=== PATIENT | female | born 1960 | race Caucasian/White ===

== ENCOUNTER 2022-12-23 11:38 | Emergency (ER) | payer OTHER ==
[2022-12-23 12:18] LABS: #Basophils 0.1 thou/uL (0.0-0.2); #Eosinphils 0.2 thou/uL (0.0-0.7); #Monocytes 0.7 thou/uL (0.11-0.59); #Neutrophils 4.6 thou/uL (1.40-6.50); %Basophils 0.8 % (0.0-1.0); %Eosinophils 1.9 % (0.0-10.0); %Lymphocytes 34.2 % (21.0-51.0); %Monocytes 8.3 % (0.0-10.0); %Neutrophils 54.1 % (42.0-75.0); Hematocrit 42.8 % (36.0-47.0); Hemoglobin 13.8 g/dL (12.0-16.0); Mean Corpuscular HGB CONC 32.2 g/dL (32.0-36.0); Mean Corpuscular Hemoglobin 30.6 pg (27.0-31.0); Mean Corpuscular Volume 94.9 fl (78.0-98.0); Mean Platelet Volume 11.7 fL (7.4-10.4); Platelet Count 202 10x3/uL (130-400); RBC Distribution Width 16.1 % (11.5-14.5); Red Blood Cell (RBC) Count 4.51 mill/uL (4.20-5.40); White Blood Cell (WBC) Count 8.5 10x3/uL (4.8-10.8)
[2022-12-23 12:37] LABS: Bacteria/HPF None Seen HPF (None Seen); Bilirubin Negative (Negative); Blood, Urine 1+ (Negative); CAUTI Indications for Culture < 2yrs of age; Clarity Clear (Clear); Glucose, Urine (Dipstick) Normal (Negative); Ketone, Urine Negative (Negative); Leukocyte 25 Leu/uL (Negative); Nitrite Negative (Negative); Protein, Urine (Dipstick) 10 mg/dL (Neg-Trace); Specific Gravity, Urine 1.011 (1.002-1.036); Squamous Epithelial 0-3 HPF (0-3); Urobilinogen Normal mg/dL (Less than 2); WBC/HPF 0-3 HPF (0-3)
[2022-12-23 12:39] LABS: Urine Culture Reflex Yes Yes
[2022-12-23] MEDS ORDERED: HYDROcodone/Acetaminophen 5/325 mg Tablet ONE (12:40)
[2022-12-23 12:41] LABS: ALT (SGPT) 21 U/L (8-55); AST (SGOT) 24 U/L (5-34); Albumin 4.8 g/dL (3.4-4.8); Alkaline Phosphatase 105 U/L (40-110); Anion Gap 15 mmol/L (10-20); BUN (Urea Nitrogen) 9 mg/dL (9.8-20.1); Bilirubin, Total Less than 0.2 mg/dL (0.2-1.2); Calc. Creatinine Clearance 0 mL/min (70-130); Calcium 9.6 mg/dL (7.8-10.44); Carbon Dioxide 23 mmol/L (23-31); Chloride 108 mmol/L (98-107); Estimated GFR 98; Globulin 2.9 g/dL (2.4-3.5); Glucose 90 mg/dL (80-115); Lipase 63 U/L (8-78); Potassium 3.3 mmol/L (3.5-5.1); Protein, Total 7.7 g/dL (5.8-8.1); Sodium 143 mmol/L (136-145)
[2022-12-23 13:42] LABS: Troponin I Less than 0.010 ng/mL (< 0.028)
== END 2022-12-23 16:10 | disposition home or self-care (01) ==
LOC: ERS 11:38
DX: R53.1 Weakness (principal); I10 Essential (primary) hypertension; F17.210 Nicotine dependence, cigarettes, uncomplicated
CPT/HCPCS: 36415; 70450; 71045; 80053; 81001; 83605; 83690; 84484; 85025; 87086; 93005

== ENCOUNTER 2023-01-21 10:52 | Outpatient (CLI) | payer OTHER | END 2023-01-21 10:53 | disposition home or self-care (01) | LOC: MRI 10:52 | PROVIDERS: ATTEND Family Medicine | DX: M47.26 Other spondylosis with radiculopathy, lumbar region (principal); M96.1 Postlaminectomy syndrome, not elsewhere classified; Z98.1 Arthrodesis status | CPT/HCPCS: 72148 ==

== ENCOUNTER 2023-03-04 07:24 | Emergency (ER) | payer OTHER ==
[2023-03-04 08:01] LABS: #Eosinphils 0.1 thou/uL (0.0-0.7); #Monocytes 0.6 thou/uL (0.11-0.59); #Neutrophils 3.4 thou/uL (1.40-6.50); %Basophils 0.3 % (0.0-1.0); %Eosinophils 1.8 % (0.0-10.0); %Lymphocytes 46.3 % (21.0-51.0); %Monocytes 8.1 % (0.0-10.0); %Neutrophils 43.1 % (42.0-75.0); Hematocrit 43.7 % (36.0-47.0); Hemoglobin 14.3 g/dL (12.0-16.0); Mean Corpuscular HGB CONC 32.7 g/dL (32.0-36.0); Mean Corpuscular Volume 94.6 fl (78.0-98.0); Mean Platelet Volume 12.3 fL (7.4-10.4); Platelet Count 192 10x3/uL (130-400); RBC Distribution Width 14.7 % (11.5-14.5); Red Blood Cell (RBC) Count 4.62 mill/uL (4.20-5.40)
[2023-03-04] MEDS ORDERED: Aspirin Chewable 81 MG TAB ONE (08:14)
[2023-03-04 08:26] LABS: ALT (SGPT) 20 U/L (8-55); AST (SGOT) 21 U/L (5-34); Albumin 4.2 g/dL (3.4-4.8); Alkaline Phosphatase 96 U/L (40-110); Anion Gap 13 mmol/L (10-20); BUN (Urea Nitrogen) 15 mg/dL (9.8-20.1); Bilirubin, Total 0.3 mg/dL (0.2-1.2); Calc. Creatinine Clearance 0 mL/min (70-130); Carbon Dioxide 27 mmol/L (23-31); Chloride 105 mmol/L (98-107); Estimated GFR 79; Globulin 3.2 g/dL (2.4-3.5); Glucose 84 mg/dL (80-115); Potassium 3.3 mmol/L (3.5-5.1); Protein, Total 7.4 g/dL (5.8-8.1); Sodium 142 mmol/L (136-145)
[2023-03-04 08:31] LABS: Troponin I Less than 0.010 ng/mL (< 0.028)
[2023-03-04] MEDS ORDERED: Ketorolac Tromethamine 30 MG (1 mL) VIAL ONE (10:39)
[2023-03-04] MEDS ORDERED: Potassium Chloride 20 MEQ TAB ONE (11:09)
[2023-03-04 11:36] LABS: Troponin I Less than 0.010 ng/mL (< 0.028)
== END 2023-03-04 11:54 | disposition home or self-care (01) ==
LOC: ERS 07:24
DX: R07.9 Chest pain, unspecified (principal); E87.6 Hypokalemia; I10 Essential (primary) hypertension; F17.290 Nicotine dependence, other tobacco product, uncomplicated; Z79.899 Other long term (current) drug therapy
CPT/HCPCS: 36415; 71045; 80053; 84484; 85025; 93005; 96374; J1885

== ENCOUNTER 2023-03-24 16:18 | Observation (INO) | payer OTHER ==
[2023-03-24 16:57] LABS: #Eosinphils 0.2 thou/uL (0.0-0.7); #Monocytes 0.5 thou/uL (0.11-0.59); #Neutrophils 2.9 thou/uL (1.40-6.50); %Basophils 0.6 % (0.0-1.0); %Eosinophils 3.8 % (0.0-10.0); %Lymphocytes 40.8 % (21.0-51.0); %Monocytes 8.3 % (0.0-10.0); %Neutrophils 45.7 % (42.0-75.0); Hematocrit 35.2 % (36.0-47.0); Hemoglobin 11.4 g/dL (12.0-16.0); Mean Corpuscular HGB CONC 32.4 g/dL (32.0-36.0); Mean Corpuscular Hemoglobin 31.5 pg (27.0-31.0); Mean Corpuscular Volume 97.2 fl (78.0-98.0); Platelet Count 317 10x3/uL (130-400); RBC Distribution Width 14.9 % (11.5-14.5); Red Blood Cell (RBC) Count 3.62 mill/uL (4.20-5.40); White Blood Cell (WBC) Count 6.4 10x3/uL (4.8-10.8)
[2023-03-24 17:27] LABS: ALT (SGPT) 16 U/L (8-55); AST (SGOT) 17 U/L (5-34); Albumin 3.6 g/dL (3.4-4.8); Alkaline Phosphatase 79 U/L (40-110); Anion Gap 17 mmol/L (10-20); BUN (Urea Nitrogen) 12 mg/dL (9.8-20.1); Bilirubin, Total 0.2 mg/dL (0.2-1.2); Calc. Creatinine Clearance 0 mL/min (70-130); Calcium 8.9 mg/dL (7.8-10.44); Carbon Dioxide 23 mmol/L (23-31); Chloride 105 mmol/L (98-107); Estimated GFR 89; Globulin 2.6 g/dL (2.4-3.5); Glucose 126 mg/dL (80-115); Potassium 3.8 mmol/L (3.5-5.1); Protein, Total 6.2 g/dL (5.8-8.1); Sodium 141 mmol/L (136-145)
[2023-03-24 17:41] LABS: Troponin I Less than 0.010 ng/mL (< 0.028)
[2023-03-24] MEDS ORDERED: Acetaminophen 500 MG TAB ONE (18:50)
[2023-03-24] MEDS ORDERED: Nitroglycerin 0.4 MG TAB (25 Tab Bottle) SL PRN (19:07)
[2023-03-24] MEDS ORDERED: Senokot S 8.6-50 MG TAB PO PRN (19:09)
[2023-03-24] MEDS ORDERED: Calcium Carbonate 500 MG ChewTAB PO PRN (19:09)
[2023-03-24] MEDS ORDERED: Ondansetron ODT 4 MG TAB PO PRN (19:09)
[2023-03-24] MEDS ORDERED: Acetaminophen 325 MG TAB PO PRN (19:09)
[2023-03-24] MEDS ORDERED: Atorvastatin Calcium 40 MG TAB PO SCH (21:15)
[2023-03-24] MEDS ORDERED: Lidocaine 4% Patch TD SCH (21:30)
[2023-03-24] MEDS: Famotidine 20 MG TAB PO SCH (22:08)
[2023-03-24 22:26] LABS: Troponin I 0.018 ng/mL (< 0.028)
[2023-03-24 23:42] VITALS: BMI 16.6
[2023-03-25] MEDS ORDERED: Baclofen 10 MG TAB PO PRN (00:36)
[2023-03-25 00:38] LABS: Troponin I Less than 0.010 ng/mL (< 0.028)
[2023-03-25] MEDS ORDERED: Baclofen 10 MG TAB PO SCH (00:45)
[2023-03-25] MEDS ORDERED: Ketorolac Tromethamine 30 MG (1 mL) VIAL IVP SCH ×2 (01:00→04:00)
[2023-03-25] MEDS ORDERED: HYDROcodone/Acetaminophen 5/325 mg Tablet PO PRN (01:01)
[2023-03-25 05:48] LABS: #Basophils 0.1 thou/uL (0.0-0.2); #Eosinphils 0.3 thou/uL (0.0-0.7); #Monocytes 0.6 thou/uL (0.11-0.59); #Neutrophils 3.2 thou/uL (1.40-6.50); %Basophils 0.9 % (0.0-1.0); %Eosinophils 3.8 % (0.0-10.0); %Lymphocytes 37.2 % (21.0-51.0); %Monocytes 8.6 % (0.0-10.0); %Neutrophils 48.6 % (42.0-75.0); Hematocrit 33.3 % (36.0-47.0); Hemoglobin 10.6 g/dL (12.0-16.0); Mean Corpuscular HGB CONC 31.8 g/dL (32.0-36.0); Mean Corpuscular Hemoglobin 30.5 pg (27.0-31.0); Mean Platelet Volume 10.8 fL (7.4-10.4); Platelet Count 283 10x3/uL (130-400); Red Blood Cell (RBC) Count 3.47 mill/uL (4.20-5.40); White Blood Cell (WBC) Count 6.6 10x3/uL (4.8-10.8)
[2023-03-25 06:17] LABS: Anion Gap 10 mmol/L (10-20); BUN (Urea Nitrogen) 17 mg/dL (9.8-20.1); Calc. Creatinine Clearance 54 mL/min (70-130); Calcium 8.9 mg/dL (7.8-10.44); Carbon Dioxide 22 mmol/L (23-31); Cardiac Risk 5.1 (Less than 4.5); Chloride 109 mmol/L (98-107); Cholesterol 138 mg/dl (< 200 Desired); Estimated GFR 97; Glucose 100 mg/dL (80-115); HDL Cholesterol 27 mg/dL (>60 Neg Risk); LDL Cholesterol, Calculated 71 mg/dL; Potassium 4.1 mmol/L (3.5-5.1); Sodium 137 mmol/L (136-145); Triglycerides 198 mg/dL (Less than 150)
[2023-03-25] MEDS ORDERED: Carvedilol 6.25 MG TAB PO SCH (08:00)
[2023-03-25 08:08] VITALS: TEMP 97.6
[2023-03-25] MEDS ORDERED: Lisinopril 20 MG TAB PO SCH (09:00)
[2023-03-25] MEDS ORDERED: Transdermal Patch Removal TOP SCH (09:30)
[2023-03-25] MEDS ORDERED: Regadenoson 0.4 MG/5 ML SYRINGE ONE (10:13)
[2023-03-25] MEDS: Pregabalin 50 MG CAP PO SCH ×2 (15:06→15:39)
[2023-03-25] MEDS: Famotidine 20 MG TAB PO SCH (15:37)
[2023-03-25 15:41] VITALS: BP 89/54
[2023-03-25] MEDS ORDERED: Atorvastatin Calcium 40 MG TAB PO SCH (21:00)
[2023-03-26] MEDS ORDERED: Amlodipine 10 MG TAB PO SCH (09:00)
[2023-03-26] MEDS ORDERED: Nicotine 21 MG PATCH TD SCH (09:00)
[2023-03-26] MEDS ORDERED: carBAMazepine XR 200 mg ER.Tablet PO SCH (09:00)
[2023-03-26] MEDS ORDERED: Aspirin 81 mg Enteric Coated Tablet PO SCH (09:00)
[2023-03-27] MEDS ORDERED: FLU VACC QS2023-24(6MOS UP)/PF 60 MCG/0.5 ML SYRINGE IM ONE (09:00)
[2023-03-28] MEDS ORDERED: FLU VACC QS2023-24(6MOS UP)/PF 60 MCG/0.5 ML SYRINGE IM ONE (09:00)
== END 2023-03-25 16:05 | disposition home or self-care (01) ==
LOC: ERS 16:18 → 2SW 19:30
PROVIDERS: ADMIT Student in an Organized Health Care Education/Training Program; ATTEND Family Medicine
DX: I25.10 Atherosclerotic heart disease of native coronary artery without angina pectoris (principal); E78.5 Hyperlipidemia, unspecified; I10 Essential (primary) hypertension; Z87.891 Personal history of nicotine dependence; Z90.710 Acquired absence of both cervix and uterus; Z98.890 Other specified postprocedural states
CPT/HCPCS: 36415; 71045; 78452; 80048; 80053; 80061; 84484; 85025; 93005; 93017; 96374; A9502; G0378; J1885; J2785

== ENCOUNTER 2023-04-03 09:53 | Emergency (ER) | payer OTHER ==
[2023-04-03 11:35] LABS: #Basophils 0.1 thou/uL (0.0-0.2); #Eosinphils 0.2 thou/uL (0.0-0.7); #Monocytes 0.9 thou/uL (0.11-0.59); #Neutrophils 4.6 thou/uL (1.40-6.50); %Basophils 0.9 % (0.0-1.0); %Eosinophils 2.3 % (0.0-10.0); %Lymphocytes 27.3 % (21.0-51.0); %Monocytes 11.3 % (0.0-10.0); %Neutrophils 57.4 % (42.0-75.0); Hematocrit 33.7 % (36.0-47.0); Mean Corpuscular HGB CONC 32.6 g/dL (32.0-36.0); Mean Corpuscular Hemoglobin 31.4 pg (27.0-31.0); Mean Corpuscular Volume 96.3 fl (78.0-98.0); Mean Platelet Volume 11.1 fL (7.4-10.4); Platelet Count 228 10x3/uL (130-400); RBC Distribution Width 15.3 % (11.5-14.5)
[2023-04-03 11:55] LABS: Acetaminophen Less than 10 mcg/mL (10.0-30.0); Alcohol Less than 10.0 mg/dL (Less than 10); Salicylate Less than 8.0 mg/dL (15.0-30.0)
[2023-04-03 11:56] LABS: ALT (SGPT) 18 U/L (8-55); AST (SGOT) 18 U/L (5-34); Albumin 3.7 g/dL (3.4-4.8); Alkaline Phosphatase 98 U/L (40-110); Anion Gap 10 mmol/L (10-20); BUN (Urea Nitrogen) 13 mg/dL (9.8-20.1); Bilirubin, Total 0.2 mg/dL (0.2-1.2); Calc. Creatinine Clearance 0 mL/min (70-130); Calcium 9.3 mg/dL (7.8-10.44); Carbon Dioxide 26 mmol/L (23-31); Chloride 108 mmol/L (98-107); Estimated GFR 99; Globulin 2.7 g/dL (2.4-3.5); Glucose 99 mg/dL (80-115); Potassium 4.4 mmol/L (3.5-5.1); Protein, Total 6.4 g/dL (5.8-8.1); Sodium 140 mmol/L (136-145)
[2023-04-03 12:32] LABS: Amphetamine Not Detected (NotDetected); Barbiturates Screen Not Detected (NotDetected); Benzodiazepine Screen Not Detected (NotDetected); Cocaine Metabolite Screen Not Detected (NotDetected); Methadone Not Detected (NotDetected); Methamphetamine Not Detected (NotDetected); Opiate Screen Detected (NotDetected); Oxycodone Screen Not Detected (NotDetected); Phencyclidine (PCP) Not Detected (NotDetected); THC/Cannabinoid Screen Not Detected (NotDetected); Tricyclic Screen Not Detected (NotDetected)
[2023-04-03 12:34] LABS: Bacteria/HPF None Seen HPF (None Seen); Bilirubin Negative (Negative); Blood, Urine Negative (Negative); CAUTI Indications for Culture Alt mental st,lethar; Clarity Clear (Clear); Glucose, Urine (Dipstick) Normal (Negative); Ketone, Urine Negative (Negative); Leukocyte Negative Leu/uL (Negative); Nitrite Negative (Negative); Protein, Urine (Dipstick) Negative (Neg-Trace); RBC/HPF 0-3 HPF (0-3); Specific Gravity, Urine 1.008 (1.002-1.036); Squamous Epithelial 0-3 HPF (0-3); Urobilinogen Normal mg/dL (Less than 2); WBC/HPF 0-3 HPF (0-3); pH, Urine 5.5 (5.0-9.0)
[2023-04-03 12:35] LABS: Urine Culture Reflex No No
== END 2023-04-03 12:40 | disposition home or self-care (01) ==
LOC: ERS 09:53
DX: S93.601A Unspecified sprain of right foot, initial encounter (principal); S93.401A Sprain of unspecified ligament of right ankle, initial encounter; I10 Essential (primary) hypertension; F17.210 Nicotine dependence, cigarettes, uncomplicated; I25.2 Old myocardial infarction; W18.39XA Other fall on same level, initial encounter; Y93.89 Activity, other specified
CPT/HCPCS: 36415; 80053; 80306; 80307; 81001; 85025; 93005

== ENCOUNTER 2023-04-29 08:35 | Outpatient (CLI) | payer OTHER | END 2023-04-29 08:36 | disposition home or self-care (01) | LOC: CT 08:35 | PROVIDERS: ATTEND Internal Medicine | DX: I25.10 Atherosclerotic heart disease of native coronary artery without angina pectoris (principal); I70.0 Atherosclerosis of aorta; I70.1 Atherosclerosis of renal artery | CPT/HCPCS: 74174 ==

== ENCOUNTER 2023-08-31 13:41 | Outpatient (CLI) | payer OTHER | END 2023-08-31 13:42 | disposition home or self-care (01) | LOC: MRI 13:41 | PROVIDERS: ATTEND Neurological Surgery | DX: M47.816 Spondylosis without myelopathy or radiculopathy, lumbar region (principal); Z98.1 Arthrodesis status; M51.27 Other intervertebral disc displacement, lumbosacral region | CPT/HCPCS: 72131; 72148 ==

== ENCOUNTER 2023-10-21 12:32 | Outpatient (CLI) | payer OTHER | END 2023-10-21 12:33 | disposition home or self-care (01) | LOC: ULT 12:32 | PROVIDERS: ATTEND Psychiatry & Neurology Neurology | DX: R56.9 Unspecified convulsions (principal) | CPT/HCPCS: 93880 ==

== ENCOUNTER 2023-10-22 12:23 | Outpatient (CLI) | payer OTHER | END 2023-10-22 12:24 | disposition home or self-care (01) | LOC: EEG 12:23 | PROVIDERS: ATTEND Psychiatry & Neurology Neurology | DX: R56.9 Unspecified convulsions (principal); G93.40 Encephalopathy, unspecified | CPT/HCPCS: 93306; 95816 ==

== ENCOUNTER 2023-12-02 09:26 | Outpatient (CLI) | payer OTHER ==
[2023-12-02] MEDS ORDERED: Magnevist 469MG/ML 20 ML VIAL ONE (09:31)
== END 2023-12-02 09:27 | disposition home or self-care (01) ==
LOC: MRI 09:26
PROVIDERS: ATTEND Psychiatry & Neurology Neurology
DX: R56.9 Unspecified convulsions (principal); J34.89 Other specified disorders of nose and nasal sinuses; R90.89 Other abnormal findings on diagnostic imaging of central nervous system; Z98.1 Arthrodesis status
CPT/HCPCS: 70553; 76376

== ENCOUNTER 2023-12-15 13:29 | Outpatient (CLI) | payer OTHER | END 2023-12-15 13:30 | disposition home or self-care (01) | LOC: BICMAMMO 13:29 | PROVIDERS: ATTEND Neurological Surgery | DX: M85.9 Disorder of bone density and structure, unspecified (principal); M81.0 Age-related osteoporosis without current pathological fracture | CPT/HCPCS: 77080 ==

== ENCOUNTER 2024-04-04 17:57 | Inpatient (IN) | payer OTHER, SELFPAY ==
[2024-04-04] MEDS ORDERED: levETIRAcetam 500 MG (5 mL) VIAL ONE (18:52)
[2024-04-04] MEDS ORDERED: Boostrix 0.5 ML (Tdap) VIAL (>/=7 yrs of age) ONE (20:16)
[2024-04-04 21:17] LABS: #Basophils 0.06 10x3/uL (0.0-0.2); %Basophils 0.4 % (0.0-1.0); %Eosinophils 0.2 % (0.0-10.0); %Lymphocytes 6.3 % (21.0-51.0); %Monocytes 4.8 % (0.0-10.0); %Neutrophils 87.4 % (42.0-75.0); Hematocrit 34.5 % (36.0-47.0); Hemoglobin 11.1 g/dL (12.0-16.0); Mean Corpuscular HGB CONC 32.2 g/dL (32.0-36.0); Mean Corpuscular Hemoglobin 29.4 pg (27.0-31.0); Mean Corpuscular Volume 91.5 fL (78.0-98.0); Mean Platelet Volume 10.9 fL (7.4-10.4); Platelet Count 178 10x3/uL (130-400); RBC Distribution Width 15.6 % (11.5-14.5); Red Blood Cell (RBC) Count 3.77 mill/uL (4.20-5.40)
[2024-04-04 21:36] LABS: Acetaminophen Less than 10 mcg/mL (Less than 10); Alcohol Less than 10.0 mg/dL (Less than 10); Salicylate Less than 8.0 mg/dL (Less than 8.0)
[2024-04-04 21:38] LABS: ALT (SGPT) 24 U/L (Less than 34); AST (SGOT) 27 U/L (11-34); Albumin 3.2 g/dL (3.1-4.5); Alkaline Phosphatase 92 U/L (40-110); Anion Gap 17 mmol/L (10-20); BUN (Urea Nitrogen) 11 mg/dL (9.8-20.1); Bilirubin, Total 0.3 mg/dL (0.3-1.2); Calc. Creatinine Clearance 0 mL/min (70-130); Calcium 8.4 mg/dL (7.8-10.44); Carbamazepine-Tegretol 11.8 ug/mL (4.0-12.0); Carbon Dioxide 18 mmol/L (23-31); Chloride 111 mmol/L (98-107); Estimated GFR 104; Globulin 3.1 g/dL (2.4-3.5); Glucose 101 mg/dL (80-115); Potassium 3.6 mmol/L (3.5-5.1); Protein, Total 6.3 g/dL (5.8-8.1); Sodium 142 mmol/L (136-145)
[2024-04-04] MEDS ORDERED: fentaNYL 50 mcg/mL 1 mL Vial ONE (22:28)
[2024-04-04 23:42] LABS: Amphetamine Not Detected (NotDetected); Barbiturates Screen Not Detected (NotDetected); Benzodiazepine Screen Not Detected (NotDetected); Cocaine Metabolite Screen Not Detected (NotDetected); Methadone Not Detected (NotDetected); Methamphetamine Not Detected (NotDetected); Opiate Screen Detected (NotDetected); Oxycodone Screen Not Detected (NotDetected); Phencyclidine (PCP) Not Detected (NotDetected); THC/Cannabinoid Screen Detected (NotDetected); Tricyclic Screen Not Detected (NotDetected)
[2024-04-04 23:45] LABS: Bacteria/HPF None Seen HPF (None Seen); Bilirubin Negative (Negative); Blood, Urine Trace (Negative); CAUTI Indications for Culture Alt mental st,lethar; Clarity Clear (Clear); Glucose, Urine (Dipstick) Normal (Negative); Ketone, Urine Trace mg/dL (Negative); Leukocyte Negative Leu/uL (Negative); Nitrite Negative (Negative); Protein, Urine (Dipstick) 20 mg/dL (Neg-Trace); Specific Gravity, Urine 1.015 (1.002-1.036); Squamous Epithelial None Seen HPF (0-3); Urobilinogen Normal mg/dL (Less than 2); WBC/HPF 0-3 HPF (0-3); pH, Urine 5.5 (5.0-9.0)
[2024-04-04 23:48] LABS: Urine Culture Reflex No No
[2024-04-05] MEDS ORDERED: hydrALAZINE 20 MG/ML VIAL SLOW IVP PRN (00:01)
[2024-04-05] MEDS ORDERED: Dextrose 50% Abboject 50 ML SYRINGE SLOW IVP PRN (00:01)
[2024-04-05] MEDS ORDERED: Promethazine HCl 25 MG/ML VIAL IM PRN (00:01)
[2024-04-05] MEDS ORDERED: Glucagon 1 MG/ML KIT IM PRN (00:01)
[2024-04-05] MEDS ORDERED: Dextrose 5% in Water 1,000 ML IV PRN (00:01)
[2024-04-05] MEDS ORDERED: Ipratropium/Albuterol 3 ML NEB NEB PRN (00:01)
[2024-04-05 03:13] VITALS: BMI 18.6
[2024-04-05] MEDS: Lactated Ringer's 1,000 ML IV SCH (03:22)
[2024-04-05] MEDS ORDERED: Ondansetron PF 4 MG/2 ML Vial ONE ×3 (04:41→14:00)
[2024-04-05] MEDS ORDERED: Morphine 2 MG/ML VIAL ONE ×3 (04:41→11:50)
[2024-04-05] MEDS: Ondansetron PF 4 MG/2 ML Vial IVP PRN (04:45)
[2024-04-05] MEDS: Morphine 2 MG/ML VIAL SLOW IVP PRN (04:45)
[2024-04-05 05:24] LABS: #Basophils 0.05 10x3/uL (0.0-0.2); #Eosinophils Less than 0.03 10x3/uL (0.0-0.7); %Basophils 0.4 % (0.0-1.0); %Eosinophils 0.1 % (0.0-10.0); %Monocytes 4.7 % (0.0-10.0); %Neutrophils 88.6 % (42.0-75.0); Hematocrit 33.6 % (36.0-47.0); Hemoglobin 10.7 g/dL (12.0-16.0); Mean Corpuscular HGB CONC 31.8 g/dL (32.0-36.0); Mean Corpuscular Hemoglobin 29.4 pg (27.0-31.0); Mean Corpuscular Volume 92.3 fL (78.0-98.0); Platelet Count 147 10x3/uL (130-400); RBC Distribution Width 15.9 % (11.5-14.5); Red Blood Cell (RBC) Count 3.64 mill/uL (4.20-5.40)
[2024-04-05 05:44] LABS: Anion Gap 17 mmol/L (10-20); BUN (Urea Nitrogen) 7 mg/dL (9.8-20.1); Calc. Creatinine Clearance 92 mL/min (70-130); Calcium 8.2 mg/dL (7.8-10.44); Carbon Dioxide 19 mmol/L (23-31); Chloride 109 mmol/L (98-107); Estimated GFR 107; Glucose 113 mg/dL (80-115); Potassium 3.4 mmol/L (3.5-5.1); Sodium 142 mmol/L (136-145)
[2024-04-05] MEDS ORDERED: CEFAZOLIN 2 GM in Sodium Chloride 0.9% 100 ML IVPB SCH (07:45)
[2024-04-05] MEDS ORDERED: Electrolyte Replacement Protocol FS PRN (08:00)
[2024-04-05 09:14] LABS: Carbamazepine-Tegretol 5.8 ug/mL (4.0-12.0)
[2024-04-05] MEDS ORDERED: Potassium Chloride 20 MEQ (100 mL) BAG ONE ×2 (09:17→11:50)
[2024-04-05] MEDS: Potassium Chloride 20 MEQ in Premix 1 BAG IVPB SCH (09:51)
[2024-04-05] MEDS: carBAMazepine SR 300 mg Capsule PO SCH (09:55)
[2024-04-05] MEDS ORDERED: Pregabalin 75 MG CAP PO SCH (13:01)
[2024-04-05] MEDS ORDERED: PHENYLEPHRINE-NS 100 MCG/ML 10 ML SYRINGE ONE (14:00)
[2024-04-05] MEDS ORDERED: PROPOFOL 200 MG/20 ML VIAL ONE (14:00)
[2024-04-05] MEDS ORDERED: Labetalol HCl 100 MG/20 ML VIAL ONE (14:00)
[2024-04-05] MEDS ORDERED: Dexamethasone 20 MG/5 ML VIAL ONE (14:00)
[2024-04-05] MEDS ORDERED: Lidocaine 1% PF 5 ML VIAL ONE (14:00)
[2024-04-05] MEDS ORDERED: Rocuronium Bromide 10 MG/ML (10ML VIAL) ONE (14:00)
[2024-04-05] MEDS ORDERED: fentaNYL PF 100 MCG/2 ML SYRINGE ONE (15:25)
[2024-04-05] MEDS ORDERED: fentaNYL 50 mcg/mL 1 mL Vial ONE (16:04)
[2024-04-05] MEDS: Pregabalin 50 MG CAP PO SCH (17:57)
[2024-04-05 18:09] LABS: Potassium 4.1 mmol/L (3.5-5.1)
[2024-04-05] MEDS: HYDROcodone/Acetaminophen 5/325 mg Tablet PO PRN (19:43)
[2024-04-05] MEDS: CEFAZOLIN 2 GM in Sodium Chloride 0.9% 100 ML IVPB SCH (21:39)
[2024-04-05] MEDS: Methocarbamol 500 MG TAB PO PRN (23:12)
[2024-04-06] MEDS: Acetaminophen 325 MG TAB PO PRN (07:43)
[2024-04-06] MEDS: Enoxaparin 30 MG (0.3 mL) SYRINGE SC SCH (09:12)
[2024-04-06 09:28] VITALS: BMI 18.6
[2024-04-06] MEDS: Senokot S 8.6-50 MG TAB PO SCH ×2 (09:50→21:57)
[2024-04-06] MEDS: Morphine 2 MG/ML VIAL SLOW IVP PRN (10:12)
[2024-04-06] MEDS: HYDROcodone/Acetaminophen 10/325 mg Tablet PO PRN (17:59)
[2024-04-06] MEDS: Sucralfate 1 GM TAB PO SCH (18:01)
[2024-04-06] MEDS: Carvedilol 6.25 MG TAB PO SCH (21:56)
[2024-04-06] MEDS: Pantoprazole 40 MG DR.TAB PO SCH (21:57)
[2024-04-06] MEDS: Pregabalin 50 MG CAP PO SCH (22:12)
[2024-04-07 04:51] LABS: #Basophils 0.05 10x3/uL (0.0-0.2); %Basophils 0.5 % (0.0-1.0); %Eosinophils 2.3 % (0.0-10.0); %Lymphocytes 16.3 % (21.0-51.0); %Monocytes 11.3 % (0.0-10.0); %Neutrophils 68.9 % (42.0-75.0); Hematocrit 26.9 % (36.0-47.0); Hemoglobin 8.5 g/dL (12.0-16.0); Mean Corpuscular HGB CONC 31.6 g/dL (32.0-36.0); Mean Corpuscular Hemoglobin 28.9 pg (27.0-31.0); Mean Corpuscular Volume 91.5 fL (78.0-98.0); Mean Platelet Volume 12.6 fL (7.4-10.4); Platelet Count 113 10x3/uL (130-400); RBC Distribution Width 15.9 % (11.5-14.5); Red Blood Cell (RBC) Count 2.94 mill/uL (4.20-5.40)
[2024-04-07 05:16] LABS: Anion Gap 11 mmol/L (10-20); BUN (Urea Nitrogen) 4 mg/dL (9.8-20.1); Calc. Creatinine Clearance 83 mL/min (70-130); Calcium 8.3 mg/dL (7.8-10.44); Carbon Dioxide 30 mmol/L (23-31); Chloride 101 mmol/L (98-107); Estimated GFR 105; Glucose 109 mg/dL (80-115); Potassium 3.3 mmol/L (3.5-5.1); Sodium 139 mmol/L (136-145)
[2024-04-07] MEDS: Lisinopril 20 MG TAB PO SCH (09:16)
[2024-04-07] MEDS: Amlodipine 10 MG TAB PO SCH (09:18)
[2024-04-07] MEDS: Atorvastatin Calcium 40 MG TAB PO SCH (09:18)
[2024-04-07] MEDS: Enoxaparin 40 MG (0.4 mL) SYRINGE SC SCH (10:58)
[2024-04-07] MEDS: Milk Of Magnesia 30 ML UDCUP PO SCH (11:04)
[2024-04-07] MEDS: Potassium Chloride 20 MEQ TAB PO SCH (14:25)
[2024-04-07] MEDS: Polyethylene Glycol 3350 17 GM Packet PO SCH (21:34)
[2024-04-08 06:18] LABS: #Basophils 0.05 10x3/uL (0.0-0.2); %Basophils 0.7 % (0.0-1.0); %Eosinophils 3.1 % (0.0-10.0); %Monocytes 15.9 % (0.0-10.0); %Neutrophils 54.1 % (42.0-75.0); Hemoglobin 7.8 g/dL (12.0-16.0); Mean Corpuscular HGB CONC 31.2 g/dL (32.0-36.0); Mean Corpuscular Hemoglobin 29.3 pg (27.0-31.0); Mean Platelet Volume 11.3 fL (7.4-10.4); Platelet Count 118 10x3/uL (130-400); RBC Distribution Width 16.3 % (11.5-14.5); Red Blood Cell (RBC) Count 2.66 mill/uL (4.20-5.40)
[2024-04-08 06:29] LABS: Anion Gap 15 mmol/L (10-20); BUN (Urea Nitrogen) 8 mg/dL (9.8-20.1); Calc. Creatinine Clearance 81 mL/min (70-130); Calcium 8.4 mg/dL (7.8-10.44); Carbon Dioxide 29 mmol/L (23-31); Chloride 101 mmol/L (98-107); Estimated GFR 104; Glucose 101 mg/dL (80-115); Potassium 4.5 mmol/L (3.5-5.1); Sodium 140 mmol/L (136-145)
[2024-04-08] MEDS: FLU (Fluarix Triv) TS24-25(6MOS UP)/PF 45 MCG/0.5 ML Syringe IM ONE (08:20)
[2024-04-08] MEDS ORDERED: Milk Of Magnesia 30 ML UDCUP PO PRN (09:46)
[2024-04-08] MEDS: HYDROcodone/Acetaminophen 7.5/325 mg Tablet PO PRN (11:12)
[2024-04-08] MEDS: Albuterol 200 PUFF INH INH SCH (18:40)
[2024-04-09 06:18] LABS: #Basophils 0.06 10x3/uL (0.0-0.2); %Basophils 0.8 % (0.0-1.0); %Eosinophils 3.6 % (0.0-10.0); %Lymphocytes 22.2 % (21.0-51.0); %Monocytes 15.2 % (0.0-10.0); %Neutrophils 56.9 % (42.0-75.0); Hematocrit 26.9 % (36.0-47.0); Hemoglobin 8.5 g/dL (12.0-16.0); Mean Corpuscular HGB CONC 31.6 g/dL (32.0-36.0); Mean Corpuscular Hemoglobin 29.4 pg (27.0-31.0); Mean Corpuscular Volume 93.1 fL (78.0-98.0); Mean Platelet Volume 11.4 fL (7.4-10.4); Platelet Count 144 10x3/uL (130-400); RBC Distribution Width 16.4 % (11.5-14.5); Red Blood Cell (RBC) Count 2.89 mill/uL (4.20-5.40)
[2024-04-09 06:31] LABS: Anion Gap 15 mmol/L (10-20); BUN (Urea Nitrogen) 9 mg/dL (9.8-20.1); Calc. Creatinine Clearance 83 mL/min (70-130); Calcium 9.1 mg/dL (7.8-10.44); Carbon Dioxide 29 mmol/L (23-31); Chloride 98 mmol/L (98-107); Estimated GFR 105; Glucose 98 mg/dL (80-115); Potassium 4.4 mmol/L (3.5-5.1); Sodium 138 mmol/L (136-145)
[2024-04-09] MEDS: Aspirin 81 mg Enteric Coated Tablet PO SCH (08:44)
[2024-04-10 06:35] LABS: #Basophils 0.09 10x3/uL (0.0-0.2); %Basophils 1.1 % (0.0-1.0); %Eosinophils 4.3 % (0.0-10.0); %Lymphocytes 21.4 % (21.0-51.0); %Monocytes 14.4 % (0.0-10.0); %Neutrophils 56.9 % (42.0-75.0); Hematocrit 28.4 % (36.0-47.0); Hemoglobin 8.8 g/dL (12.0-16.0); Mean Corpuscular Hemoglobin 28.7 pg (27.0-31.0); Mean Corpuscular Volume 92.5 fL (78.0-98.0); Platelet Count 185 10x3/uL (130-400); RBC Distribution Width 16.7 % (11.5-14.5); Red Blood Cell (RBC) Count 3.07 mill/uL (4.20-5.40)
[2024-04-10 07:02] LABS: Anion Gap 14 mmol/L (10-20); BUN (Urea Nitrogen) 8 mg/dL (9.8-20.1); Calc. Creatinine Clearance 75 mL/min (70-130); Calcium 8.8 mg/dL (7.8-10.44); Carbon Dioxide 32 mmol/L (23-31); Chloride 94 mmol/L (98-107); Estimated GFR 102; Glucose 114 mg/dL (80-115); Potassium 4.3 mmol/L (3.5-5.1); Sodium 136 mmol/L (136-145)
[2024-04-11 09:58] LABS: #Basophils 0.09 10x3/uL (0.0-0.2); %Basophils 1.1 % (0.0-1.0); %Eosinophils 3.3 % (0.0-10.0); %Monocytes 13.7 % (0.0-10.0); Hematocrit 28.9 % (36.0-47.0); Mean Corpuscular HGB CONC 31.1 g/dL (32.0-36.0); Mean Corpuscular Hemoglobin 29.1 pg (27.0-31.0); Mean Corpuscular Volume 93.5 fL (78.0-98.0); Mean Platelet Volume 11.4 fL (7.4-10.4); Platelet Count 226 10x3/uL (130-400); RBC Distribution Width 16.4 % (11.5-14.5); Red Blood Cell (RBC) Count 3.09 mill/uL (4.20-5.40)
[2024-04-11 10:24] LABS: Anion Gap 15 mmol/L (10-20); BUN (Urea Nitrogen) 8 mg/dL (9.8-20.1); Calc. Creatinine Clearance 74 mL/min (70-130); Calcium 9.4 mg/dL (7.8-10.44); Carbon Dioxide 34 mmol/L (23-31); Chloride 97 mmol/L (98-107); Estimated GFR 102; Glucose 105 mg/dL (80-115); Sodium 141 mmol/L (136-145)
[2024-04-12] MEDS: HYDROcodone/Acetaminophen 7.5/325 mg Tablet PO PRN (01:36)
[2024-04-12] MEDS: Acetaminophen/Codeine 30-300mg Tablet PO PRN (14:09)
[2024-04-12] MEDS: Morphine 2 MG/ML VIAL SLOW IVP SCH (16:36)
[2024-04-12 17:01] VITALS: BP 152/81; TEMP 98.1
== END 2024-04-12 17:02 | DRG 481 ==
LOC: ERS 17:57 → ERHOLD 04-05 00:09 → 2SE 04-05 00:28 → SURG A 04-07 18:34
PROVIDERS: ADMIT Surgery; ATTEND Surgery
PROC: 0QS736Z Reposition Left Upper Femur with Intramedullary Internal Fixation Device, Percutaneous Approach (ICD-10-PCS; principal; 2024-04-05)
PROC: XX20X89 Monitoring of Brain Electrical Activity, Computer-aided Detection and Notification, New Technology Group 9 (ICD-10-PCS; 2024-04-05)
DX: S72.145A Nondisplaced intertrochanteric fracture of left femur, initial encounter for closed fracture (principal); E44.0 Moderate protein-calorie malnutrition; Z68.1 Body mass index [BMI] 19.9 or less, adult; I10 Essential (primary) hypertension; S02.2XXA Fracture of nasal bones, initial encounter for closed fracture; I25.2 Old myocardial infarction; G40.909 Epilepsy, unspecified, not intractable, without status epilepticus; E78.5 Hyperlipidemia, unspecified; F11.90 Opioid use, unspecified, uncomplicated; D64.9 Anemia, unspecified; M81.0 Age-related osteoporosis without current pathological fracture; F12.90 Cannabis use, unspecified, uncomplicated; H05.222 Edema of left orbit; I25.10 Atherosclerotic heart disease of native coronary artery without angina pectoris; Z90.49 Acquired absence of other specified parts of digestive tract; Z72.0 Tobacco use; Z90.79 Acquired absence of other genital organ(s); Z79.82 Long term (current) use of aspirin; Z79.899 Other long term (current) drug therapy
CPT/HCPCS: 36415; 36416; 70450; 70486; 72125; 74018; 80048; 80053; 80156; 80306; 80307; 81001; 82140; 82550; 84146; 85025; 87426; 90471; 90656; 90715; 93005; 94664; 94760; 96374; 96375; C1713; J1100; J1650; J1953; J2272; J2405; J2704; J3010; J3480; J7120

== ENCOUNTER 2024-04-26 19:36 | Inpatient (IN) | payer OTHER ==
[2024-04-26 20:55] LABS: #Basophils 0.03 10x3/uL (0.0-0.2); %Basophils 0.5 % (0.0-1.0); %Eosinophils 1.9 % (0.0-10.0); %Lymphocytes 32.1 % (21.0-51.0); %Monocytes 11.4 % (0.0-10.0); %Neutrophils 53.5 % (42.0-75.0); Hematocrit 35.7 % (36.0-47.0); Hemoglobin 11.1 g/dL (12.0-16.0); Mean Corpuscular HGB CONC 31.1 g/dL (32.0-36.0); Mean Corpuscular Hemoglobin 28.5 pg (27.0-31.0); Mean Corpuscular Volume 91.5 fL (78.0-98.0); Mean Platelet Volume 10.5 fL (7.4-10.4); Platelet Count 355 10x3/uL (130-400); RBC Distribution Width 15.6 % (11.5-14.5)
[2024-04-26 21:13] LABS: ALT (SGPT) 7 U/L (Less than 34); AST (SGOT) 19 U/L (11-34); Albumin 3.4 g/dL (3.1-4.5); Alkaline Phosphatase 134 U/L (40-110); Anion Gap 16 mmol/L (10-20); BUN (Urea Nitrogen) 20 mg/dL (9.8-20.1); Bilirubin, Total 0.2 mg/dL (0.3-1.2); Calc. Creatinine Clearance 0 mL/min (70-130); Calcium 9.7 mg/dL (7.8-10.44); Carbon Dioxide 26 mmol/L (23-31); Chloride 105 mmol/L (98-107); Estimated GFR 97; Globulin 3.9 g/dL (2.4-3.5); Glucose 109 mg/dL (80-115); Potassium 4.1 mmol/L (3.5-5.1); Protein, Total 7.3 g/dL (5.8-8.1); Sodium 143 mmol/L (136-145)
[2024-04-26] MEDS ORDERED: Lorazepam 2 MG/ML VIAL SLOW IVP PRN (22:22)
[2024-04-26] MEDS ORDERED: Acetaminophen 325 MG TAB PO PRN (22:22)
[2024-04-26] MEDS ORDERED: Ketorolac Tromethamine 30 MG (1 mL) VIAL ONE (22:43)
[2024-04-26] MEDS ORDERED: levETIRAcetam 500 MG (5 mL) VIAL ONE (22:43)
[2024-04-26 23:17] LABS: CK (CPK) 30 U/L (29-168); Magnesium 1.6 mg/dL (1.6-2.6)
[2024-04-27] MEDS ORDERED: traMADol HCl 50 MG TAB ONE (00:04)
[2024-04-27] MEDS: traMADol HCl 50 MG TAB PO PRN (00:07)
[2024-04-27] MEDS ORDERED: Albuterol 200 PUFF (6.7GM INHALER) INH PRN (00:55)
[2024-04-27] MEDS ORDERED: HYDROcodone/Acetaminophen 10/325 mg Tablet PO PRN (00:55)
[2024-04-27] MEDS: Magnesium 2 GM/50 ML(in water) 2 GM in Premix 1 BAG IVPB SCH (01:00)
[2024-04-27] MEDS ORDERED: Nitroglycerin 0.4 MG TAB (25 Tab Bottle) SL SCH (01:00)
[2024-04-27] MEDS ORDERED: hydrALAZINE 10 MG TAB PO PRN (01:02)
[2024-04-27] MEDS ORDERED: Magnesium 2 GM/50 ML BAG (IN WATER) ONE (01:02)
[2024-04-27 03:51] LABS: #Basophils 0.05 10x3/uL (0.0-0.2); %Basophils 0.8 % (0.0-1.0); %Eosinophils 1.7 % (0.0-10.0); %Lymphocytes 36.6 % (21.0-51.0); %Monocytes 10.5 % (0.0-10.0); %Neutrophils 50.1 % (42.0-75.0); Hematocrit 30.7 % (36.0-47.0); Hemoglobin 9.3 g/dL (12.0-16.0); Mean Corpuscular HGB CONC 30.3 g/dL (32.0-36.0); Mean Corpuscular Hemoglobin 28.8 pg (27.0-31.0); Mean Platelet Volume 10.4 fL (7.4-10.4); Platelet Count 322 10x3/uL (130-400); RBC Distribution Width 15.5 % (11.5-14.5); Red Blood Cell (RBC) Count 3.23 mill/uL (4.20-5.40)
[2024-04-27 04:31] LABS: ALT (SGPT) 7 U/L (Less than 34); AST (SGOT) 17 U/L (11-34); Albumin 2.9 g/dL (3.1-4.5); Alkaline Phosphatase 118 U/L (40-110); Anion Gap 12 mmol/L (10-20); BUN (Urea Nitrogen) 21 mg/dL (9.8-20.1); Bilirubin, Total 0.1 mg/dL (0.3-1.2); Calc. Creatinine Clearance 0 mL/min (70-130); Carbon Dioxide 26 mmol/L (23-31); Chloride 108 mmol/L (98-107); Estimated GFR 100; Globulin 3.2 g/dL (2.4-3.5); Glucose 93 mg/dL (80-115); Potassium 4.1 mmol/L (3.5-5.1); Protein, Total 6.1 g/dL (5.8-8.1); Sodium 142 mmol/L (136-145)
[2024-04-27] MEDS ORDERED: Ketorolac Tromethamine 30 MG (1 mL) VIAL ONE (05:51)
[2024-04-27] MEDS: Ketorolac Tromethamine 30 MG (1 mL) VIAL IVP PRN (05:53)
[2024-04-27 07:52] VITALS: BMI 18.8
[2024-04-27] MEDS ORDERED: Famotidine 20 MG TAB ONE (08:24)
[2024-04-27] MEDS ORDERED: Lisinopril 20 MG TAB ONE (08:24)
[2024-04-27] MEDS ORDERED: Enoxaparin 30 MG (0.3 mL) SYRINGE ONE (08:25)
[2024-04-27] MEDS: Enoxaparin 30 MG (0.3 mL) SYRINGE SC SCH (09:32)
[2024-04-27] MEDS: Famotidine 20 MG TAB PO SCH (09:39)
[2024-04-27] MEDS: carBAMazepine 200 MG TAB PO SCH (09:39)
[2024-04-27] MEDS: Lisinopril 20 MG TAB PO SCH (09:39)
[2024-04-27] MEDS: Pregabalin 50 MG CAP PO SCH (09:40)
[2024-04-27] MEDS: Famotidine/PF 20 mg/2ml Vial SLOW IVP SCH (09:40)
[2024-04-27] MEDS ORDERED: levETIRAcetam 500 MG TAB PO SCH (10:19)
[2024-04-27] MEDS ORDERED: levETIRAcetam 500 MG TAB ONE (11:03)
[2024-04-27] MEDS: levETIRAcetam 500 MG TAB PO SCH ×2 (11:11→21:58)
[2024-04-27] MEDS ORDERED: Magnevist 469MG/ML 20 ML VIAL ONE (11:48)
[2024-04-27] MEDS: HYDROcodone/Acetaminophen 10/325 mg Tablet PO PRN (16:43)
[2024-04-27] MEDS: carBAMazepine XR 200 mg ER.Tablet PO SCH (16:43)
[2024-04-27] MEDS ORDERED: carBAMazepine XR 200 mg ER.Tablet PO SCH ×3 (17:00)
[2024-04-27] MEDS ORDERED: Nitroglycerin 0.4 MG TAB (25 Tab Bottle) SL PRN (21:13)
[2024-04-27] MEDS: Atorvastatin Calcium 40 MG TAB PO SCH (21:58)
[2024-04-28] MEDS: Sodium Chloride 0.9% 1,000 ML IV SCH (00:48)
[2024-04-28] MEDS: Albumin 25% 25 GM (100 mL) BOT IVPB SCH (02:48)
[2024-04-28 04:09] LABS: #Basophils 0.05 10x3/uL (0.0-0.2); %Basophils 1.2 % (0.0-1.0); %Eosinophils 2.6 % (0.0-10.0); %Lymphocytes 46.6 % (21.0-51.0); %Monocytes 11.4 % (0.0-10.0); Hematocrit 27.7 % (36.0-47.0); Hemoglobin 8.7 g/dL (12.0-16.0); Mean Corpuscular HGB CONC 31.4 g/dL (32.0-36.0); Mean Corpuscular Hemoglobin 29.6 pg (27.0-31.0); Mean Corpuscular Volume 94.2 fL (78.0-98.0); Mean Platelet Volume 10.7 fL (7.4-10.4); Platelet Count 292 10x3/uL (130-400); RBC Distribution Width 15.6 % (11.5-14.5); Red Blood Cell (RBC) Count 2.94 mill/uL (4.20-5.40)
[2024-04-28 04:51] LABS: Lactic Acid 0.57 mmol/L (0.50-2.20)
[2024-04-28 04:59] LABS: Anion Gap 11 mmol/L (10-20); BUN (Urea Nitrogen) 13 mg/dL (9.8-20.1); Calc. Creatinine Clearance 75 mL/min (70-130); Calcium 8.6 mg/dL (7.8-10.44); Carbon Dioxide 24 mmol/L (23-31); Chloride 110 mmol/L (98-107); Estimated GFR 102; Glucose 85 mg/dL (80-115); Magnesium 1.6 mg/dL (1.6-2.6); Potassium 4.3 mmol/L (3.5-5.1); Sodium 141 mmol/L (136-145)
[2024-04-28] MEDS ORDERED: FLU (Fluarix Triv) TS24-25(6MOS UP)/PF 45 MCG/0.5 ML Syringe IM ONE (09:00)
[2024-04-28] MEDS ORDERED: Enoxaparin 40 MG (0.4 mL) SYRINGE SC SCH (09:00)
[2024-04-28] MEDS: Enoxaparin 30 MG (0.3 mL) SYRINGE SC SCH (09:21)
[2024-04-28] MEDS: Polyethylene Glycol 3350 17 GM Packet PO SCH (19:49)
[2024-04-28] MEDS: Senokot 8.6 MG TAB PO SCH (19:50)
[2024-04-28] MEDS: Carvedilol 6.25 MG TAB PO SCH (19:50)
[2024-04-29] MEDS: Enoxaparin 40 MG (0.4 mL) SYRINGE SC SCH (08:57)
[2024-04-29] MEDS: HYDROcodone/Acetaminophen 10/325 mg Tablet PO PRN (09:02)
[2024-04-29 16:41] VITALS: BP 87/53; TEMP 98
== END 2024-04-29 18:15 | disposition home or self-care (01) | DRG 100 ==
LOC: ERS 19:36 → ERHOLD 22:22 → OBSVTOIN 04-27 11:36 → 2SE 04-27 14:22
PROVIDERS: ADMIT Internal Medicine; ATTEND Family Medicine
PROC: XX20X89 Monitoring of Brain Electrical Activity, Computer-aided Detection and Notification, New Technology Group 9 (ICD-10-PCS; principal; 2024-04-26)
PROC: 30233J1 Transfusion of Nonautologous Serum Albumin into Peripheral Vein, Percutaneous Approach (ICD-10-PCS; 2024-04-26)
DX: G40.909 Epilepsy, unspecified, not intractable, without status epilepticus (principal); G93.41 Metabolic encephalopathy; I10 Essential (primary) hypertension; J44.9 Chronic obstructive pulmonary disease, unspecified; E78.5 Hyperlipidemia, unspecified; F17.210 Nicotine dependence, cigarettes, uncomplicated; S72.002D Fracture of unspecified part of neck of left femur, subsequent encounter for closed fracture with routine healing; I95.9 Hypotension, unspecified
CPT/HCPCS: 36415; 70450; 70553; 71045; 76376; 80048; 80053; 80156; 82550; 83605; 83735; 84145; 84146; 84443; 85025; 93005; J1650; J1885; J1953; J3475; J7030; P9047

== ENCOUNTER 2024-10-13 13:16 | Inpatient (IN) | payer OTHER ==
[2024-10-13 14:57] LABS: #Basophils 0.06 10x3/uL (0.0-0.2); #Eosinophils 0.31 10x3/uL (0.0-0.7); #Monocytes 0.87 10x3/uL (0.11-0.59); #Neutrophils 6.69 10x3/uL (1.40-6.50); %Basophils 0.6 % (0.0-1.0); %Eosinophils 3.3 % (0.0-10.0); %Lymphocytes 15.7 % (21.0-51.0); %Monocytes 9.2 % (0.0-10.0); %Neutrophils 70.8 % (42.0-75.0); Hematocrit 30.3 % (36.0-47.0); Hemoglobin 9.1 g/dL (12.0-16.0); Mean Corpuscular Hemoglobin 25.9 pg (27.0-31.0); Mean Corpuscular Volume 86.1 fL (78.0-98.0); Platelet Count 170 10x3/uL (130-400); Red Blood Cell (RBC) Count 3.52 mill/uL (4.20-5.40); White Blood Cell (WBC) Count 9.45 10x3/uL (4.8-10.8)
[2024-10-13 15:17] VITALS: BMI 18.3
[2024-10-13 15:18] LABS: CRP, High Sensitivity at Bryan 1.68 mg/dL (< or = 0.5)
[2024-10-13 15:19] LABS: ALT (SGPT) 12 U/L (Less than 34); AST (SGOT) 22 U/L (11-34); Albumin 3.3 g/dL (3.1-4.5); Alkaline Phosphatase 152 U/L (40-110); Anion Gap 15 mmol/L (10-20); BUN (Urea Nitrogen) 17 mg/dL (9.8-20.1); Bilirubin, Total 0.1 mg/dL (0.3-1.2); Calc. Creatinine Clearance 73 mL/min (70-130); Calcium 9.0 mg/dL (7.8-10.44); Carbon Dioxide 26 mmol/L (23-31); Chloride 103 mmol/L (98-107); Globulin 3.6 g/dL (2.4-3.5); Glucose 111 mg/dL (80-115); Potassium 3.7 mmol/L (3.5-5.1); Sodium 140 mmol/L (136-145)
[2024-10-13] MEDS: Acetaminophen 500 MG TAB PO PRN (15:55)
[2024-10-14] MEDS: PNEUMOC 20-VAL CONJ-DIP CRM/PF 0.5 ML SYRINGE IM ONE (10:57)
[2024-10-14] MEDS: Ondansetron PF 4 MG/2 ML Vial IVP PRN (13:30)
[2024-10-15] MEDS: HYDROcodone/Acetaminophen 5/325 mg Tablet PO PRN (11:13)
[2024-10-17] MEDS ORDERED: Cyclobenzaprine 10 MG TAB PO PRN (09:20)
[2024-10-17] MEDS ORDERED: HYDROcodone/Acetaminophen 10/325 mg Tablet PO PRN (09:20)
[2024-10-17] MEDS ORDERED: Nitroglycerin 0.4 MG TAB (25 Tab Bottle) SL PRN (09:20)
[2024-10-17] MEDS ORDERED: Albuterol 200 PUFF INH INH PRN (09:23)
[2024-10-17 11:33] VITALS: BP 147/81; TEMP 98
[2024-10-17] MEDS ORDERED: Pregabalin 50 MG CAP PO SCH (15:00)
[2024-10-17] MEDS ORDERED: CARBAMAZEPINE 300 MG PO SCH (21:00)
[2024-10-17] MEDS ORDERED: levETIRAcetam 500 MG TAB PO SCH (21:00)
[2024-10-17] MEDS ORDERED: Senokot S 8.6-50 MG TAB PO SCH (21:00)
== END 2024-10-17 13:59 | disposition home or self-care (01) | DRG 863 ==
LOC: UNDOADMIN 13:51 → SURG A 13:51 → SURG B 13:56 → INTOOBSV 13:56 → OBSVTOIN 10-15 09:28
PROVIDERS: ADMIT Orthopaedic Surgery; ATTEND Orthopaedic Surgery
DX: T81.41XA Infection following a procedure, superficial incisional surgical site, initial encounter (principal); M86.9 Osteomyelitis, unspecified; E78.00 Pure hypercholesterolemia, unspecified; I10 Essential (primary) hypertension; J44.9 Chronic obstructive pulmonary disease, unspecified; Z96.649 Presence of unspecified artificial hip joint; M51.9 Unspecified thoracic, thoracolumbar and lumbosacral intervertebral disc disorder; M71.10 Other infective bursitis, unspecified site; Z80.0 Family history of malignant neoplasm of digestive organs; I25.2 Old myocardial infarction; Z98.890 Other specified postprocedural states; Z90.79 Acquired absence of other genital organ(s); Z79.899 Other long term (current) drug therapy
CPT/HCPCS: 36415; 80053; 85025; 86141; 96365; 96375; 96376; G0378; G0379; J2270; J2405; Q0162